=== PATIENT | male | born 1970 | race Caucasian/White ===

== ENCOUNTER 2018-11-18 09:37 | Emergency (ER) | payer OTHER ==
[2018-11-18 09:50] VITALS: BP 117/66; PULSE 78; TEMP 98.2; BMI 25.1
[2018-11-18] MEDS ORDERED: ACETAMINOPHEN 500 MG TABLET (FP) PO ONE (10:48)
--- NOTE | 2018-11-18 10:52 | PDOC ---
History of Present Illness - General Chief Complaint: Laceration Stated Complaint: LACERATION Time Seen by Provider: 11/18/18 10:22 History Source: Patient Exam Limitations: No Limitations - History of Present Illness Initial Comments: 11/18/18 10:47 48 year old male with history of DM and heart murmur and surgical history presents with laceration to right thumb states he sustained injury while cutting papers with a blade. States last td 2 year ago. 11/18/18 10:48 11/18/18 11:19 Timing/Duration: reports: just prior to arrival Severity: Yes: moderate Location: reports: hands Respiratory Risk Factors: reports: no cause identified Associated Symptoms: reports: denies symptoms Past History - Travel Traveled outside of the country in the last 30 days: No - Past Medical History Allergies/Adverse Reactions: Allergies Allergy/AdvReac Type Severity Reaction Status Date / Time No Known Allergies Allergy Verified 11/18/18 09:40 Home Medications: Ambulatory Orders Cephalexin Monohydrate [Keflex -] 500 mg PO Q8H #21 capsule 11/18/18 Glipizide 2 mg PO DAILY 11/18/18 Metformin HCl 500 mg PO BID 11/18/18 COPD: No Diabetes: Yes (NIDM) - Immunization History Immunization Up to Date: Yes - Suicide/Smoking/Psychosocial Hx Smoking History: Never smoked Hx Alcohol Use: No Drug/Substance Use Hx: No Review of Systems - Review of Systems Able to Perform ROS?: Yes Is the patient limited Indonesian proficient: No Constitutional: No: Chills, Fever, Weakness HEENTM: No: Nose Congestion, Throat Swelling, Difficulty Swallowing Respiratory: No: Cough, Orthopnea, Shortness of Breath, Productive cough Cardiac (ROS): No: Lightheadedness, Palpitations ABD/GI: No: Blood Streaked Bowels, Poor Appetite, Poor Fluid Intake, Indigestion , Abdominal cramping Musculoskeletal: Yes: Joint Pain. No: Back Pain, Joint Swelling, Muscle Pain Integumentary: Yes: Other (injury to right thumb). No: Sweating Neurological: No: Numbness, Weakness *Physical Exam - Vital Signs Last Vital Signs Temp Pulse Resp BP Pulse Ox 98.2 F 78 17 117/66 100 11/18/18 09:40 11/18/18 09:40 11/18/18 09:40 11/18/18 09:40 11/18/18 09:40 - Physical Exam General Appearance: Yes: Nourished, Appropriately Dressed HEENT: positive: TMs Normal, Pharynx Normal Neck: positive: Supple. negative: Lymphadenopathy (R), Lymphadenopathy (L) Respiratory/Chest: positive: Lungs Clear, Normal Breath Sounds Cardiovascular: positive: Regular Rate, S1, S2 Extremity: positive: Normal Capillary Refill, Normal Range of Motion, Other ( laceration of right thumb; avulsed skin) Neurologic: positive: hotel maid II-XII NML intact, Fully Oriented, Normal Response, Motor Strength 5/5 Moderate Sedation - Procedure Monitoring Vital Signs: Procedure Monitoring Vital Signs Temperature 98.2 F 11/18/18 09:40 Pulse Rate 78 11/18/18 09:40 Respiratory Rate 17 11/18/18 09:40 Blood Pressure 117/66 11/18/18 09:40 O2 Sat by Pulse Oximetry (%) 100 11/18/18 09:40 Medical Decision Making - Medical Decision Making 11/18/18 10:54 48 year old male with history of DM and heart murmur and surgical history presents with laceration to right thumb states he sustained injury while cutting papers with a blade. Plan wound care surgicel and pressure dressing applied 11/18/18 11:22 pressure dressing reapplied, bleeding stopped by surgicel d/c home with f/u instructions to return in 2 days for wound check rx: keflex *DC/Admit/Observation/Transfer Diagnosis at time of Disposition: Avulsion, finger tip Qualifiers: Encounter type: initial encounter Qualified Code(s): S61.209A - Unspecified open wound of unspecified finger without damage to nail, initial encounter - Discharge Dispostion Disposition: HOME Condition at time of disposition: Good Decision to Admit order: No - Prescriptions Prescriptions: Cephalexin Monohydrate [Keflex -] 500 mg PO Q8H #21 capsule - Referrals Referrals: Cookie Mclaughlin MD [Primary Care Provider] - - Patient Instructions Printed Discharge Instructions: DI for Avulsion Laceration (Not Requiring Sutures) Additional Instructions: Please keep dressing in place for 2 days, return to emergency room in 2 days for wound check. Please do not get dressing wet. Take medication as prescribed until completed - Post Discharge Activity Forms/Work/School Notes: Back to Work
[2018-11-18] MEDS ORDERED: ACETAMINOPHEN 500 MG TABLET (FP) ONE (10:53)
== END 2018-11-18 11:36 | disposition home or self-care (01) ==
LOC: JERFT 09:37 → JER 09:37 → JERFT 11:36
PROC: 0HQFXZZ Repair Right Hand Skin, External Approach (ICD-10-PCS; principal; 2018-11-18)
DX: S61.111A Laceration without foreign body of right thumb with damage to nail, initial encounter (principal); W27.5XXA Contact with paper-cutter, initial encounter; Y93.89 Activity, other specified; Y92.89 Other specified places as the place of occurrence of the external cause; Y99.8 Other external cause status
CPT/HCPCS: 12001; 99281-25

== ENCOUNTER 2018-11-20 09:55 | Emergency (ER) | payer OTHER ==
[2018-11-20 10:28] VITALS: BP 107/64; PULSE 79; TEMP 98; BMI 25.1
--- NOTE | 2018-11-20 11:12 | PDOC ---
History of Present Illness - General Chief Complaint: Revisit,Wound Recheck Stated Complaint: WOUND CHECK Time Seen by Provider: 11/20/18 11:06 - History of Present Illness Initial Comments: 11/20/18 11:09 48-year-old male presents for evaluation of a wound check of the left thumb. He was seen 2 days ago and his wound was washed and Surgicel was placed. Surgicel remains in place. He has no sequela since treatment Past History - Past Medical History Allergies/Adverse Reactions: Allergies Allergy/AdvReac Type Severity Reaction Status Date / Time No Known Allergies Allergy Verified 11/18/18 09:40 COPD: No Diabetes: Yes (NIDM) - Immunization History Immunization Up to Date: Yes - Suicide/Smoking/Psychosocial Hx Smoking History: Unknown if ever smoked Hx Alcohol Use: No Drug/Substance Use Hx: No Review of Systems - Review of Systems Integumentary: Yes: See HPI *Physical Exam - Vital Signs Last Vital Signs Temp Pulse Resp BP Pulse Ox 98 F 79 16 107/64 100 11/20/18 10:23 11/20/18 10:23 11/20/18 10:23 11/20/18 10:23 11/20/18 10:23 - Physical Exam Comments: 11/20/18 11:10 Left thumb wound Surgicel is in place, surrounding skin is normal color and temperature. Moderate Sedation - Procedure Monitoring Vital Signs: Procedure Monitoring Vital Signs Temperature 98 F 11/20/18 10:23 Pulse Rate 79 11/20/18 10:23 Respiratory Rate 16 11/20/18 10:23 Blood Pressure 107/64 11/20/18 10:23 O2 Sat by Pulse Oximetry (%) 100 11/20/18 10:23 *DC/Admit/Observation/Transfer Diagnosis at time of Disposition: Visit for wound check - Discharge Dispostion Disposition: HOME Condition at time of disposition: Stable Decision to Admit order: No - Referrals Referrals: Cookie Mclaughlin MD [Primary Care Provider] - Murali Mccabe MD [Staff Physician] - - Patient Instructions Additional Instructions: Continue to wash her hand with soap and water and leave it open to air. Please follow-up with hand surgery in 2-3 days for further evaluation and treatment options. Return to the emergency room should she require any further treatment or have any further issues. - Post Discharge Activity
== END 2018-11-20 11:30 | disposition home or self-care (01) ==
LOC: JERFT 09:55
DX: Z48.817 Encounter for surgical aftercare following surgery on the skin and subcutaneous tissue (principal)
CPT/HCPCS: 99281-25